=== PATIENT | male | born 1985 | race Caucasian/White ===

== ENCOUNTER → 2016-11-10 | Outpatient (REF) | payer OTHER ==
[~2016-11-10] MED LIST: /LINE60TA; ACET65TA; PERC5TAB8; TRAM50TA2; TYLENOL #3
[2016-11-10 17:39] LABS: BASO % 0.5 % (0.0-1.0); EOS # 0.2 K/mm3 (0.0-0.50); EOS % 2.3 % (0.0-3.0); LARGE UNSTAINED CELL # 0.2 K/mm3 (0.0-0.4); LARGE UNSTAINED CELL % 2.5 % (0.0-4.0); LYMPH # 2.7 K/mm3 (1.5-6.5); LYMPH % 31.5 % (24.0-44.0); MEAN CORPUSCULAR HEMOGLOBIN 29.4 pg (27.0-33.0); MEAN CORPUSCULAR HGB CONC 33.3 g/dl (32.0-36.5); MEAN CORPUSCULAR VOLUME 88.2 fl (80.0-96.0); MONO # 0.4 K/mm3 (0.0-0.8); MONO % 4.9 % (0.0-5.0); NEUTROPHILS # 4.9 K/mm3 (1.8-7.7); NEUTROPHILS % 58.3 % (36.0-66.0); PLATELET COUNT, AUTOMATED 251 k/mm3 (150-450); RED CELL DISTRIBUTION WIDTH 12.3 % (11.5-14.5); WHITE BLOOD COUNT 8.4 K/mm3 (4.0-10.0)
[2016-11-10 18:09] LABS: ALBUMIN 4.2 GM/DL (3.2-5.2); ALBUMIN/GLOBULIN RATIO 1.56 (1.00-1.93); ALKALINE PHOSPHATASE 101 U/L (45-117); ALT/SGPT 43 U/L (12-78); ANION GAP 7 MEQ/L (8-16); AST/SGOT 31 U/L (15-37); BILIRUBIN,TOTAL 0.3 MG/DL (0.2-1.0); BLOOD UREA NITROGEN 17 MG/DL (7-18); CALCIUM LEVEL 8.9 MG/DL (8.5-10.1); CARBON DIOXIDE LEVEL 25 MEQ/L (21-32); CHLORIDE LEVEL 109 MEQ/L (98-107); CHOLESTEROL LEVEL 156 MG/DL (<200); FERRITIN 62 NG/ML (26-388); FREE T4 0.89 NG/DL (0.76-1.46); GLOMERULAR FILTRATION RATE > 60.0 (>60); GLUCOSE, FASTING 90 MG/DL (70-105); POTASSIUM SERUM 4.3 MEQ/L (3.5-5.1); SODIUM LEVEL 141 MEQ/L (136-145); TOTAL PROTEIN 6.9 GM/DL (6.4-8.2); TRIGLYCERIDES LEVEL 67 MG/DL (<150); URIC ACID 5.7 MG/DL (3.5-7.2)
== END ==
LOC: M SFHCCLAY 10:14
PROVIDERS: ATTEND Family Medicine
DX: R42 Dizziness and giddiness (principal); M25.50 Pain in unspecified joint; E66.01 Morbid (severe) obesity due to excess calories

== ENCOUNTER 2017-04-04 20:21 | Emergency (ER) | payer MEDICAID, OTHER ==
[~2017-04-04] VITALS: Ht 188 cm; Wt 155.4 kg
[2017-04-04 22:02] LABS: MEAN CORPUSCULAR HEMOGLOBIN 29.6 pg (27.0-33.0); MEAN CORPUSCULAR HGB CONC 34.3 g/dl (32.0-36.5); MEAN CORPUSCULAR VOLUME 86.3 fl (80.0-96.0); RED CELL DISTRIBUTION WIDTH 12.8 % (11.5-14.5); WHITE BLOOD COUNT 10.6 K/mm3 (4.0-10.0)
[2017-04-04 22:20] LABS: METHADONE URINE NEGATIVE (NEGATIVE)
[2017-04-04 22:32] LABS: ALBUMIN 4.3 GM/DL (3.2-5.2); ALBUMIN/GLOBULIN RATIO 1.34 (1.00-1.93); ALKALINE PHOSPHATASE 106 U/L (45-117); ALT/SGPT 33 U/L (12-78); ANION GAP 8 MEQ/L (8-16); AST/SGOT 18 U/L (15-37); BILIRUBIN,DIRECT 0.1 MG/DL (0.0-0.2); BILIRUBIN,TOTAL 0.7 MG/DL (0.2-1.0); BLOOD UREA NITROGEN 17 MG/DL (7-18); CALCIUM LEVEL 9.4 MG/DL (8.5-10.1); CARBON DIOXIDE LEVEL 25 MEQ/L (21-32); CHLORIDE LEVEL 107 MEQ/L (98-107); CREATININE FOR GFR 1.33 MG/DL (0.70-1.30); GLOMERULAR FILTRATION RATE > 60.0 (>60); GLUCOSE, FASTING 98 MG/DL (70-105); POTASSIUM SERUM 3.9 MEQ/L (3.5-5.1); SODIUM LEVEL 140 MEQ/L (136-145); TOTAL PROTEIN 7.5 GM/DL (6.4-8.2)
[2017-04-04 23:36] VITALS: BP 142/88
== END 2017-04-04 23:25 | disposition home or self-care (01) ==
LOC: M ED 20:21
DX: F32.9 Major depressive disorder, single episode, unspecified (principal); I50.9 Heart failure, unspecified; F95.2 Tourette's disorder; J45.909 Unspecified asthma, uncomplicated; F41.9 Anxiety disorder, unspecified; F90.9 Attention-deficit hyperactivity disorder, unspecified type; F91.3 Oppositional defiant disorder; F43.10 Post-traumatic stress disorder, unspecified; Z91.030 Bee allergy status

== ENCOUNTER → 2018-05-05 | Outpatient (CLI) | payer OTHER | LOC: M RAD 16:00 | DX: K42.9 Umbilical hernia without obstruction or gangrene (principal) | CPT/HCPCS: 76705 ==

== ENCOUNTER 2018-07-13 09:02 | Day surgery (SDC) | payer OTHER ==
[~2018-07-13 09:02] MED LIST changes: -/LINE60TA; -ACET65TA; +LIDOCAINE 1% SDV 5 ML VIAL SQ; -PERC5TAB8; -TRAM50TA2; -TYLENOL #3
[2018-07-13] MEDS: LR 1,000 ML IV ×2 (09:35→11:38)
[2018-07-13] MEDS: ceFAZolin SOD 1 GM in D5W MINI-BAG PLUS 50 ML IV (10:41)
[2018-07-13] MEDS ORDERED: ROCURONIUM BROMIDE 50 MG/5 ML VIAL As Ordered ×2 (10:56→10:57)
[2018-07-13] MEDS ORDERED: ONDANSETRON 4MG/2ML VIAL (J2405) As Ordered (10:56)
[2018-07-13] MEDS ORDERED: dexameTHASONE 4 MG/ML 1ML VIAL (J1100) As Ordered (10:56)
[2018-07-13] MEDS ORDERED: LIDOCAINE 2% INJ 100 MG/5 ML SDV (FOR ANES.) As Ordered (10:56)
[2018-07-13] MEDS ORDERED: KETOROLAC 60 MG/2 ML VIAL (J1885) As Ordered (10:56)
[2018-07-13] MEDS ORDERED: MIDAZOLAM INJ 2 MG/2 ML VIAL (J2250) As Ordered (10:56)
[2018-07-13] MEDS ORDERED: PROPOFOL 200 MG/20 ML VIAL As Ordered ×2 (10:56)
[2018-07-13] MEDS ORDERED: fentaNYL 250 MCG/5 ML INJECTION (J3010) As Ordered (11:00)
[2018-07-13] MEDS ORDERED: NEOSTIGMINE 10 MG/10 ML VIAL (J2710) As Ordered (11:13)
[2018-07-13] MEDS ORDERED: GLYCOPYRROLATE INJ 0.2 MG/ML 2 ML VIAL As Ordered ×3 (11:13)
[2018-07-13] MEDS: BUPIVACAINE/EPIN 0.25% 30 ML VIAL As Ordered (11:20)
[2018-07-13] MEDS ORDERED: PERCOCET 5MG/325MG TAB As Ordered (11:44)
[2018-07-13] MEDS: PERCOCET 5MG/325MG TAB PO ×2 (11:44→12:12)
[2018-07-13] MEDS ORDERED: fentaNYL 100 MCG/2 ML INJECTION (J3010) As Ordered (11:44)
[2018-07-13] MEDS: fentaNYL 100 MCG/2 ML INJECTION (J3010) IV ×3 (11:44→12:12)
[2018-07-13] MEDS ORDERED: LR 1,000 ML IV (12:00)
[2018-07-13] MEDS ORDERED: MORPHINE 4 MG/ML 1ML VIAL/SYRINGE (J2270) IV (12:00)
[2018-07-13] MEDS ORDERED: ONDANSETRON 4MG/2ML VIAL (J2405) IV ×2 (12:00→12:15)
[2018-07-13] MEDS ORDERED: KETOROLAC 30 MG/ML VIAL (J1885) IV (17:00)
== END 2018-07-13 13:47 | disposition home or self-care (01) ==
LOC: M SDC 09:02
DX: K42.9 Umbilical hernia without obstruction or gangrene (principal); R07.9 Chest pain, unspecified; K21.9 Gastro-esophageal reflux disease without esophagitis; B95.62 Methicillin resistant Staphylococcus aureus infection as the cause of diseases classified elsewhere; R06.02 Shortness of breath; M12.9 Arthropathy, unspecified; F31.9 Bipolar disorder, unspecified; F32.9 Major depressive disorder, single episode, unspecified; F90.9 Attention-deficit hyperactivity disorder, unspecified type; F63.81 Intermittent explosive disorder; F42.2 Mixed obsessional thoughts and acts; F95.2 Tourette's disorder; F43.10 Post-traumatic stress disorder, unspecified; R06.83 Snoring; F12.90 Cannabis use, unspecified, uncomplicated; T88.59XD Other complications of anesthesia, subsequent encounter; E66.01 Morbid (severe) obesity due to excess calories; Z68.41 Body mass index [BMI] 40.0-44.9, adult; Z91.030 Bee allergy status; Z72.0 Tobacco use
CPT/HCPCS: 49585

== ENCOUNTER 2019-08-16 18:45 | Emergency (ER) | payer OTHER ==
[~2019-08-16] VITALS: Ht 193 cm; Wt 159.1 kg
[~2019-08-16 18:45] MED LIST changes: +ACET65TA; -LIDOCAINE 1% SDV 5 ML VIAL SQ; +PERC5TAB8; +TRAM50TA2; +TYLENOL #3; +ZYVO100T
[2019-08-16 18:46] VITALS: BP 147/83
== END 2019-08-16 22:19 | disposition home or self-care (01) ==
LOC: M ED 18:45
DX: T58.91XA Toxic effect of carbon monoxide from unspecified source, accidental (unintentional), initial encounter (principal); Y92.9 Unspecified place or not applicable; Y93.9 Activity, unspecified; F17.200 Nicotine dependence, unspecified, uncomplicated; Z91.030 Bee allergy status

== ENCOUNTER → 2022-08-17 | Outpatient (REF) | payer OTHER | LOC: M LAB REF 21:32 | PROVIDERS: ATTEND Physician Assistant Medical | DX: J20.9 Acute bronchitis, unspecified (principal) ==

== ENCOUNTER 2023-07-18 22:42 | Emergency (ER) | payer MEDICAID, OTHER ==
[~2023-07-18] VITALS: Ht 193 cm; Wt 138.0 kg
[2023-07-18] MEDS ORDERED: MIDAZOLAM INJ 2MG/2ML VIAL IM ONE (22:50)
[2023-07-18] MEDS ORDERED: HALOPERIDOL 5MG/ML 1ML VIAL IM ONE (22:50)
[2023-07-18 23:16] LABS: HEMATOCRIT 43.1 % (42.0-52.0); HEMOGLOBIN 14.5 g/dl (13.5-17.5); MEAN CORPUSCULAR HEMOGLOBIN 29.9 pg (27.0-33.0); MEAN CORPUSCULAR HGB CONC 33.6 g/dl (32.0-36.5); MEAN CORPUSCULAR VOLUME 88.9 fl (80.0-96.0); PLATELET COUNT, AUTOMATED 270 10^3/uL (150-450); RED BLOOD COUNT 4.85 10^6/uL (4.30-6.10); WHITE BLOOD COUNT 12.5 10^3/uL (4.0-10.0)
[2023-07-18 23:43] LABS: ETHYL ALCOHOL (ETHANOL) 0.005 % (0.000-0.010)
[2023-07-18 23:45] LABS: ACETAMINOPHEN LEVEL < 2.0 UG/ML (10.0-20.0); ALBUMIN 4.4 G/DL (3.2-5.2); ALKALINE PHOSPHATASE 87 U/L (46-116); ALT/SGPT 22 U/L (7.0-40); AST/SGOT 20 U/L (<34); BILIRUBIN,DIRECT 0.2 MG/DL (<0.4); BILIRUBIN,TOTAL 0.7 MG/DL (0.3-1.2); BLOOD UREA NITROGEN 16 MG/DL (9-23); CALCIUM LEVEL 9.4 MG/DL (8.5-10.1); CARBON DIOXIDE LEVEL 26 MMOL/L (20-31); CHLORIDE LEVEL 109 MMOL/L (98-107); CREATININE FOR GFR 1.15 MG/DL (0.70-1.30); GLOMERULAR FILTRATION RATE > 60.0 (>60); GLUCOSE, FASTING 100 MG/DL (60-100); POTASSIUM SERUM 4.2 MMOL/L (3.5-5.1); SALICYLATE LEVEL < 3.0 MG/DL (<30); SODIUM LEVEL 142 MMOL/L (136-145); TOTAL PROTEIN 7.1 G/DL (5.7-8.2)
[2023-07-18 23:50] LABS: THYROID STIMULATING HORMONE 0.583 uIU/ML (0.55-4.78)
[2023-07-18 23:55] LABS: AMPHETAMINES LEVEL URINE NEGATIVE (NEGATIVE); BARBITURATES URINE NEGATIVE (NEGATIVE); BENZODIAZEPINES URINE NEGATIVE (NEGATIVE); METHADONE URINE NEGATIVE (NEGATIVE); OPIATES URINE NEGATIVE (NEGATIVE); PHENCYCLIDINE URINE NEGATIVE (NEGATIVE)
[2023-07-18 23:57] LABS: CANNABINOIDS URINE POSITIVE (NEGATIVE); COCAINE METABOLITE URINE POSITIVE (NEGATIVE)
[2023-07-19] MEDS ORDERED: MED REC CURRENTLY UNOBTAINABLE XX SCH (06:00)
[2023-07-19] MEDS ORDERED: LORazepam 2 MG TAB PO ONE (09:30)
[2023-07-19] MEDS ORDERED: OLANZapine ORAL DISINTEGRATING TAB 5MG PO ONE (09:30)
[2023-07-19] MEDS ORDERED: SERT50TA29 (10:19)
[2023-07-19] MEDS ORDERED: LORazepam 1 MG TAB PO STA (20:38)
[2023-07-20 12:29] VITALS: BP 131/77; TEMP 97.8; O2SAT 97
[2023-07-20] MEDS ORDERED: SERTRALINE HCL 50 MG TAB PO SCH (21:00)
== END 2023-07-20 15:49 | disposition home or self-care (01) ==
LOC: EEVIPCON 22:42 → M ED 22:42
DX: F43.20 Adjustment disorder, unspecified (principal); F32.A Depression, unspecified; I44.0 Atrioventricular block, first degree; F31.9 Bipolar disorder, unspecified; F43.10 Post-traumatic stress disorder, unspecified; J45.909 Unspecified asthma, uncomplicated; Z87.891 Personal history of nicotine dependence; Z91.030 Bee allergy status; Z79.899 Other long term (current) drug therapy
CPT/HCPCS: 80048; 80076; 80143; 80307; 82077; 84443; 85027; 87635; 87641; 93005; 96372; 99285; J1630; J2250

== ENCOUNTER → 2024-10-19 | Outpatient (REF) ==
[~2024-10-19] MED LIST changes: +PHEN10TA3 PO; +SERT50TA29; +[UNRECOGNIZED DRUG - CODE] PO
== END ==
LOC: M PLAIMG 13:56
PROVIDERS: ATTEND Internal Medicine
DX: M25.562 Pain in left knee (principal)